=== PATIENT | female | born 1940 | race Caucasian/White ===

== ENCOUNTER 2016-10-09 08:50 | Inpatient (IN) | payer OTHER ==
[2016-09-25 10:22] VITALS: BMI 31.0
--- NOTE | 2016-09-25 11:03 | PAT Medication Instructions ---
Service Date Sep 25, 2016. Current Home Medication List Allopurinol (Zyloprim), 300 MG PO QAM Alprazolam (Xanax), 0.5 MG PO BID Cholecalciferol (Vitamin D3), 1 CAP PO QAM Colchicine (Colchicine *), 0.6 MG PO DAILY PRN for GOUT Cyanocobalamin (Vitamin B-12), 1,000 MCG PO QAM Folic Acid (Folvite), 1 MG PO QAM Indomethacin (Indocin), 50 MG PO TID PRN for Pain Multivitamin (Multivitamin), 1 TAB PO QAM Omeprazole (Prilosec), 20 MG PO QAM Probiotic Product (Acidophilus), 1 CAP PO QAM Ropinirole (Requip), 0.5 MG PO HS Sertraline (Zoloft), 50 MG PO BID Tramadol (Ultram), 50 MG PO Q8H PRN for Pain Medication Instructions For Your Scheduled Surgery - Check with surgeon for instructions: Indomethacin (Indocin), 50 MG PO TID PRN for Pain - Hold the following medications 24 hours prior to surgery: Colchicine (Colchicine *), 0.6 MG PO DAILY PRN for GOUT - Hold the following medications the morning of surgery: Cholecalciferol (Vitamin D3), 1 CAP PO QAM Cyanocobalamin (Vitamin B-12), 1,000 MCG PO QAM Folic Acid (Folvite), 1 MG PO QAM Multivitamin (Multivitamin), 1 TAB PO QAM Probiotic Product (Acidophilus), 1 CAP PO QAM - Take the following medications the morning of surgery with a sip of water: Allopurinol (Zyloprim), 300 MG PO QAM Alprazolam (Xanax), 0.5 MG PO BID Omeprazole (Prilosec), 20 MG PO QAM Sertraline (Zoloft), 50 MG PO BID Tramadol (Ultram), 50 MG PO Q8H PRN for Pain(okay to take up to 4 hours prior to surgery if needed) - Hold the following medications as scheduled the night before surgery: Ropinirole (Requip), 0.5 MG PO HS - Take the following medications as scheduled the night before surgery: Alprazolam (Xanax), 0.5 MG PO BID Sertraline (Zoloft), 50 MG PO BID Tramadol (Ultram), 50 MG PO Q8H PRN for Pain (if needed) If you have any questions please call us at [phone] or [phone] or [phone]
[2016-09-25 11:46] LABS: BASO % 0.2 %; BASO ABS # 0.01 K/uL (0-0.2); COMPLETE YES; HEMATOCRIT 39.3 % (37-47); IG% 0.4 %; MEAN CELL VOLUME 96.6 fL (80-100); MEAN CORPUSCULAR HEMOGLOBIN 31.4 pg (25-34); MEAN CORPUSCULAR HGB CONC 32.6 g/dl (32-36); MEAN PLATELET VOLUME 10.9 fL (7.4-10.4); MONO % 12.4 %; PLATELET COUNT 279 K/uL (130-400); RED BLOOD COUNT 4.07 M/uL (4.2-5.4); WHITE BLOOD COUNT 5.26 K/uL (4.8-10.8)
--- NOTE | 2016-09-25 11:46 | DIAGNOSTIC IMAGING REPORT ---
TWO VIEW CHEST CLINICAL HISTORY: Preoperative examination. FINDINGS: PA and lateral chest radiographs are compared to study dated 09/08/2010. The cardiomediastinal silhouette is unremarkable. Chronic interstitial thickening is similar to previous. The lungs and pleural spaces are clear. There is no pneumothorax. The skeletal structures are osteopenic. Fusion hardware is partially visualized in the lumbar spine. IMPRESSION: No active disease in the chest. Electronically signed by: [place] Andres M.D. 09/25/2016 11:44 AM Dictated Date/Time: 09/25/2016 11:44 AM
[2016-09-25 12:21] LABS: BUN/CREATININE RATIO 18.7 (10-20); CALCIUM 9.3 mg/dl (8.5-10.1); POTASSIUM 4.5 mmol/L (3.5-5.1)
[2016-09-25 12:26] LABS: URINE APPEARANCE CLEAR (CLEAR); URINE BILIRUBIN NEG (NEG); URINE COLOR YELLOW; URINE NITRITE NEG (NEG); URINE PH 5.5 (4.5-7.5); URINE SPECIFIC GRAVITY 1.015 (1.000-1.030); UROBILINOGEN NEG (NEG)
[2016-09-25 12:27] LABS: MANUAL MICROSCOPIC REQUIRED? NO; REVIEW REQ? NO
[2016-10-09] VITALS (7 sets, daily range): BP systolic 128–178; BP diastolic 80–121; PULSE 72–93; TEMP 35.5–36.4; O2SAT 94–100; Ht 147.3 cm; Wt 67.3 kg
[~2016-10-09] VITALS: Ht 147.3 cm; Wt 67.3 kg
[~2016-10-09 08:50] MED LIST: ALLO300T2 PO; ALPR-411 PO; CEFAZOLIN 2000 MG/60 ML D5W 60 ML IV SCH; CHOL2000 PO; CLC6 PO; CYAN10005 PO; FENTANYL CITRATE INJ 50 MCG/1 ML 2 ML VIAL ONE; FOLI1TAB7 PO; INDO-24 PO; LACTATED RINGER'S 1000ML IV SCH; MIDAZOLAM HCL 1 MG/ML 2ML VIAL ONE; MULT-506 PO; PRLSR20 PO; PROB1CAP54 PO; ROPI0.5T15 PO; SERT50TA PO; TRAM-10 PO
[2016-10-09] MEDS ORDERED: ONDANSETRON INJ 2 MG/ML 2 ML VIAL ONE (09:04)
[2016-10-09] MEDS ORDERED: DEXAMETHASONE SOD INJ 4 MG/ML VIAL ONE (09:04)
[2016-10-09] MEDS ORDERED: ROCURONIUM BROMIDE 10 MG/ML 5 ML VIAL IV ONE ×2 (09:04→12:36)
[2016-10-09] MEDS ORDERED: GLYCOPYRROLATE INJ 0.2 MG/ML VIAL ONE (09:04)
[2016-10-09] MEDS ORDERED: PROPOFOL IV EMULSION 10 MG/ML 20 ML VIAL IV ONE (09:04)
[2016-10-09] MEDS ORDERED: EpHEDrine SULFATE 50MG/5ML SYR ONE (09:04)
[2016-10-09] MEDS ORDERED: LIDOCAINE HCL 2% 2 ML VIAL (20MG/ML) ONE (09:04)
[2016-10-09] MEDS ORDERED: NEOSTIGMINE METHYLSULFATE 5 MG/5 ML SYR ONE (09:04)
[2016-10-09] MEDS ORDERED: LARYING-O-JET KIT (LTA) ONE ×2 (09:04)
[2016-10-09] MEDS ORDERED: PHENYLEPHRINE 100MCG/ML 5ML SYR ONE (09:04)
--- NOTE | 2016-10-09 10:29 | History & Physical Bridge Note ---
H&P Re-Evaluation Bridge Note: I have examined the patient, reviewed the History & Physical and in the interval since the performance of the History & Physical I have noted the following changes of clinical significance: No changes noted
[2016-10-09] MEDS ORDERED: BUPIVACAINE 0.5 % 5 MG/1 ML MPF 30ML VIAL ONE (10:36)
[2016-10-09] MEDS ORDERED: HYDROmorphone INJ 1 MG/ML SYR IV PRN (11:45)
[2016-10-09] MEDS ORDERED: EpHEDrine SULFATE INJ 50 MG/ML AMP IV PRN (11:45)
[2016-10-09] MEDS ORDERED: ONDANSETRON INJ 2 MG/ML 2 ML VIAL IV PRN ×2 (11:45→13:45)
[2016-10-09] MEDS ORDERED: ATROPINE SULFATE 0.1 MG/ML 5ML SYR IV PRN (11:45)
[2016-10-09] MEDS ORDERED: LABETALOL HCL IV 5 MG/ML 20ML IV ONE (11:59)
[2016-10-09] MEDS ORDERED: FENTANYL CITRATE INJ 50 MCG/1 ML 2 ML VIAL ONE (12:01)
[2016-10-09] MEDS ORDERED: TISSEEL FIBRIN SEALANT 10ML TOP ONE (13:29)
[2016-10-09] MEDS ORDERED: INDOMETHACIN 25 MG CAP PO PRN (13:45)
[2016-10-09] MEDS ORDERED: COLCHICINE 0.6 MG TAB PO PRN (13:45)
[2016-10-09 14:23] LABS: MEAN CORPUSCULAR HEMOGLOBIN 31.3 pg (25-34); MEAN PLATELET VOLUME 10.4 fL (7.4-10.4); PLATELET COUNT 254 K/uL (130-400); RED BLOOD COUNT 3.96 M/uL (4.2-5.4); WHITE BLOOD COUNT 9.84 K/uL (4.8-10.8)
[2016-10-09] MEDS: FENTANYL CITRATE INJ 50 MCG/1 ML 2 ML VIAL IV PRN ×4 (14:25→14:40)
[2016-10-09 14:33] LABS: MEAN CORPUSCULAR HGB CONC 32.6 g/dl (32-36)
--- NOTE | 2016-10-09 14:46 | Anesthesiology Progress Note ---
Anesthesia Post Op Note Date & Time Oct 09, 2016 at 14:46 Vital Signs Pain Intensity: 4 Vital Signs Past 12 Hours Date Time Temp Pulse Resp B/P (MAP) Pulse Ox O2 Delivery O2 Flow Rate FiO2 10/09/16 14:35 75 12 180/85 100 Nasal Cannula 2 10/09/16 14:25 74 12 180/94 100 Oxymask 3 10/09/16 14:15 72 12 183/95 100 Oxymask 3 10/09/16 14:05 69 12 179/90 100 Oxymask 10 10/09/16 13:57 36.3 72 12 135/71 100 Oxymask 10 10/09/16 09:38 36.4 72 20 167/82 98 Room Air Notes Mental Status: alert / awake / arousable, participated in evaluation Pt Amnestic to Procedure: Yes Nausea / Vomiting: adequately controlled Pain: adequately controlled Airway Patency, RR, SpO2: stable & adequate BP & HR: stable & adequate Hydration State: stable & adequate Anesthetic Complications: no major complications apparent
[2016-10-09 14:47] LABS: BUN/CREATININE RATIO 10.6 (10-20); CALCIUM 9.1 mg/dl (8.5-10.1); CREATININE 1.1 mg/dl (0.60-1.20)
--- NOTE | 2016-10-09 15:35 | [facility] Operative Report ---
Operative Report Operative Date Oct 09, 2016. Pre-Operative Diagnosis Renal Mass Post-Operative Diagnosis Renal Cell Carcinoma Procedure(s) Performed Left Laparoscopic Hand-Assisted Nephrectomy with Biopsy Surgeon Dr. Clay Colby Packaging Clerk Surgeon(s) Lily Lacey PA-C Estimated Blood Loss 100cc Findings Left renal mass Frozen section: Clear-cell renal cell carcinoma Specimens As per Surgeon Frozen 1. Renal mass Biopsy Pernament A. Left Kidney Drains Crawford Anesthesia Gen. 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 While this mass was very concerning for renal cell carcinoma we were somewhat uncertain if this could possibly represent a new metastatic focus of her breast cancer Description of Procedure Jenniffer May is identified in the preoperative holding area, appropriate informed consents were reviewed and completed, and the patient was transported to the operating suite. Appropriate preoperative antibiotics in the form of Ancef. Adequate general anesthesia was achieved, and she was placed in a right side down left side up lateral decubitus position where she was padded brace in standard fashion. Following appropriate sterile prep and drape a Parker style incision was made in the left lower quadrant. Incision extended from the lateral borders of the rectus muscle through the external oblique fascia for approximately 8 cm. Of note is her dissected there is subcutaneous fat we encountered numerous small vessels which are suture-ligated. After exposing the external oblique fascia I was able to incise this sharply and ultimately open it further with electrocautery. I then performed the same procedure to the internal oblique followed by the transversalis. The peritoneum was opened sharply adjacent to the border of the rectus. Sweep was performed which revealed no evidence of adhesions. I then opened the peritoneum laterally for the full length of our incision. Utilizing this incision I was able to mobilize the white line of Toldt and medialize the colon. I then placed a hand port and insufflated the abdomen inspection of the abdomen via a 12 mm trocar inserted through the hand port revealed an anterior abdominal wall free of adhesions. After visualizing this was able to place 2 additional 12 mm ports along the border of the rectus muscle. The first was placed 2 finger rest below the costal margin the second 8 cm inferior to that. Then proceeded with the remaining laparoscopic portion of the case. I continued by mobilization of the colon medially. Simultaneously I dissected between the top of the kidney and the spleen mobilizing the spleen cephalad. After exposing the medial aspect of the kidney I turned my attention to the lower pole. I was able to control the lower chondral is and identified both the gonadal vein and the ureter. Initial dissection was medial to the gonadal and lateral to the aorta were elevated at the structures laterally. I moved well I carefully up towards the kidney and the vascular hilum. Of note there were numerous branches off the gonadal vein in this area, and I controlled several days with clips. I ultimately clipped the gonadal vein as well inferiorly and superiorly to avoid any continued bleeding. I change my dissection plane at that time to lateral to the gonadal vein and elevated the kidney lateral to it. I was able to dissect anterior to the vein as I traced this up to its junction with the renal vein. I expose the entire anterior surface of the renal vein and dissected above the cephalad and below the caudal portions of it. Renal artery was palpable immediately posterior to the vein. I was able to pass a finger posterior to the hilar structures completely wrapped my finger around both the structures in preparation for a staple placement. 4 stapling the hilum, however we turned our attention to incising Gerota's fascia and exposing underlying mass. I made my initial incision on the lateral portion of the kidney in the mid pole region based on the CT findings. After exposing the renal surface, I was able to identify 1 approximately quarter sized area consistent with the tumor. I performed a laparoscopic ultrasound of this area confirming that this was in fact the minimally exophytic portion of the very endophytic tumor. I then passed a Mike-Cut biopsy needle through the skin took 3 cores from the tumor. These cores were sent for immediate frozen section analysis. A reason for the frozen section analysis, is that if she in fact has metastatic breast cancer, we would likely abort that radical nephrectomy and move more towards a systemic therapy. I accompanied the tumor down to the pathology department, and microscopic evaluation revealed what appears to be clear cell renal cell carcinoma. After the pathology was returned, we will I returned to the room in stable the hilar structures with a single staple load. He was excellent hemostasis. I was able to dissect between the upper pole of the kidney and the lateral aspect of the adrenal gland utilizing the Harmonic scalpel. The upper pole of the kidney was entirely free to that time only remaining attachments were lateral which were controlled with Harmonic scalpel and the inferior. The inferior pole Gerota's fascia was controlled with a single staple load which included the ureter. Specimen was then removed through the hand port, and the renal fossa inspected. There was excellent hemostasis. I did place some Tisseel over the lateral border of the adrenal gland and the hilar structures. I gently coaxed the descending colon back in the left aspect of the abdomen and guided omentum over the entire surgical field. I closed the 2-12 mm laparoscopic portion [id number] 0 Vicryl sutures, and closed the hand port and numerous layers. The first reapproximated the peritoneum followed by the internal oblique fascia and ultimately the external oblique fascia. 0 Vicryl was used for all of these. Her approximate Laura's fascia utilizing an additional 0 Vicryl before closing the skin with 4-0 Monocryl. All wounds were infiltrated with half percent Marcaine, and all wounds were dressed with Dermabond. Patient was subsequent extubated and taken to the PACU in stable condition. I attest to the content of the Intraoperative Record and any orders documented therein. Any exceptions are noted below.
[2016-10-09] MEDS: LACTATED RINGER'S 1000ML 1,000 ML IV SCH ×2 (15:41→23:17)
[2016-10-09] MEDS: HYDROmorphone INJ 1 MG/ML SYR IV PRN (15:41)
[2016-10-09 16:49] LABS: PROTHROMBIN TIME (PATIENT) 10.2 SECONDS (9.0-12.0)
[2016-10-09] MEDS: ACETAMINOPHEN 500 MG TAB PO SCH ×2 (17:37→23:17)
[2016-10-09] MEDS: ACETAMINOPHEN/CODEINE 300/30MG TAB PO PRN ×2 (17:37→22:34)
[2016-10-09] MEDS: CEFAZOLIN IV 2,000 MG in DEXTROSE 5% 50ML 50 ML IV SCH (20:33)
[2016-10-09] MEDS: DOCUSATE SODIUM 100 MG CAP PO SCH (20:33)
[2016-10-09] MEDS: ALPRAZOLAM 0.5 MG TAB PO SCH (20:33)
[2016-10-09] MEDS: SERTRALINE HCL 50 MG TAB PO SCH (20:33)
[2016-10-09] MEDS: HEPARIN SOD 5000 UNIT/0.5 ML CARP SQ SCH (22:28)
[2016-10-10] MEDS: HYDROmorphone INJ 1 MG/ML SYR IV PRN (02:29)
[2016-10-10] MEDS: CEFAZOLIN IV 2,000 MG in DEXTROSE 5% 50ML 50 ML IV SCH ×2 (03:22→13:42)
[2016-10-10 03:36] VITALS: BP 91/55; PULSE 85; TEMP 36.6; O2SAT 91
[2016-10-10 03:55] VITALS: BP 101/62
[2016-10-10] MEDS: ACETAMINOPHEN 500 MG TAB PO SCH ×4 (06:08→23:44)
[2016-10-10] MEDS: LACTATED RINGER'S 1000ML 1,000 ML IV SCH (07:20)
[2016-10-10 08:02] VITALS: BP 133/84; PULSE 85; TEMP 36.4; O2SAT 96
--- NOTE | 2016-10-10 08:11 | Progress Note ---
Subjective Date of Service: Oct 10, 2016. Subjective Pt evaluation today including: conversation w/ patient, chart review, lab review Voiding: cervantes catheter in place (patent, draining clear, yellow urine) 76 yo female s/p left HALN. Renal bx intraop consistent with clear cell. Pt reports some left back pain this morning. Labs pending. I&Os acceptable. Review of Systems Constitutional: No fever, No chills Respiratory: No shortness of breath Cardiac: No chest pain Abdomen: + pain (incisional), No nausea, No vomiting Female : No hematuria Heme: No abnormal bleeding/bruising Objective Vital Signs Date Time Temp Pulse Resp B/P (MAP) Pulse Ox O2 Delivery O2 Flow Rate FiO2 10/10/16 08:02 36.4 85 18 133/84 (100) 96 Room Air 10/10/16 03:55 101/62 (75) 10/10/16 03:36 36.6 85 16 91/55 (67) 91 Room Air 10/09/16 23:55 36.4 93 16 144/82 (102) 96 Room Air 10/09/16 23:22 Room Air 10/09/16 17:10 84 14 128/80 (96) 94 Nasal Cannula 2.0 10/09/16 16:31 98 Nasal Cannula 2.0 10/09/16 16:10 77 16 153/121 (132) 98 Nasal Cannula 2.0 10/09/16 15:40 36.4 79 13 176/96 (122) 100 Nasal Cannula 2.0 10/09/16 15:10 35.5 79 14 178/84 (115) 100 Nasal Cannula 2.0 10/09/16 15:10 100 Nasal Cannula 2.0 10/09/16 15:10 100 Nasal Cannula 2.0 10/09/16 14:55 72 16 144/90 98 Nasal Cannula 2 10/09/16 14:45 36.4 70 12 148/94 98 Nasal Cannula 2 10/09/16 14:35 75 12 180/85 100 Nasal Cannula 2 10/09/16 14:25 74 12 180/94 100 Oxymask 3 10/09/16 14:15 72 12 183/95 100 Oxymask 3 10/09/16 14:05 69 12 179/90 100 Oxymask 10 10/09/16 13:57 36.3 72 12 135/71 100 Oxymask 10 10/09/16 09:38 36.4 72 20 167/82 98 Room Air Physical Exam General Appearance: no apparent distress, + obese Eyes: normal inspection ENT: hearing grossly normal Neck: no JVD Respiratory/Chest: no respiratory distress, no accessory muscle use Cardiovascular: no JVD Abdomen: + pertinent finding (abdominal incisions c/d/i) Extremities: normal inspection Neurologic/Psychiatric: alert, normal mood/affect, oriented x 3 Skin: normal color Laboratory Results Last 24 Hours Test 10/09/16 14:04 10/09/16 16:01 10/10/16 04:44 White Blood Count 9.84 K/uL Red Blood Count 3.96 M/uL Hemoglobin 12.4 g/dL Hematocrit 38.0 % Mean Corpuscular Volume 96.0 fL Mean Corpuscular Hemoglobin 31.3 pg Mean Corpuscular Hemoglobin Concent 32.6 g/dl RDW Standard Deviation 53.7 fL RDW Coefficient of Variation 15.2 % Platelet Count 254 K/uL Mean Platelet Volume 10.4 fL Sodium Level 140 mmol/L Potassium Level 4.0 mmol/L Chloride Level 106 mmol/L Carbon Dioxide Level 27 mmol/L Anion Gap 7.0 mmol/L Blood Urea Nitrogen 12 mg/dl Creatinine 1.10 mg/dl Est Creatinine Clear Calc Drug Dose 36.4 ml/min Estimated GFR () 57.3 Estimated GFR (Non- 49.4 BUN/Creatinine Ratio 10.6 Random Glucose 144 mg/dl Calcium Level 9.1 mg/dl Prothrombin Time 10.2 SECONDS Prothromb Time International Ratio 1.0 Assessment and Plan POD #1 s/p left HALN. AFVSS. Pt doing well post-op. Labs pending. Will d/c cervantes catheter this morning; TOV. Will advance to a mechanical soft diet for breakfast. Encourage use of IS. Ambulation to hallway after breakfast. Possible d/c home later this afternoon if labs stable, tolerating PO, pain controlled, and ambulating without difficulty. The pt was seen and assessed with Dr. Colby this morning. Discharge planning: home
[2016-10-10] MEDS ORDERED: ACET-749 PO (08:14)
[2016-10-10] MEDS ORDERED: CLC100 PO (08:14)
--- NOTE | 2016-10-10 08:17 | Discharge Instructions ---
Discharge Instructions Date of Service Oct 10, 2016. Admission Reason for Admission: Renal Mass Discharge Discharge Diagnosis / Problem: Renal cell carcinoma Discharge Goals Goal(s): Decrease discomfort, Increase independence, Improve disease control, Improve nutritional status, Therapeutic intervention Activity Recommendations Activity Limitations: as noted below Shower/Bathe: tomorrow 1. Do not lift >15lbs x 6 weeks. 2. No heavy exercise x 6 weeks. You may engage in light activity such as walking and stairs as tolerated. 3. Do not drive x [address] while taking narcotics. 4. Follow-up as scheduled. Please call our office at [phone] if you need to reschedule for any reason. 5. Do not take tramadol in addition to Tylenol #3. Please take one or the other. . . Current Hospital Diet Hospital Diet(s): Regular Diet Discharge Diet Recommended Diet: Regular Diet Procedures Procedures Performed: Left Laparoscopic Hand-Assisted Nephrectomy with Biopsy Pending Studies Studies pending at discharge: yes (renal pathology) List of pending studies: renal mass pathology Medical Emergencies . Who to Call and When: Medical Emergencies: If at any time you feel your situation is an emergency, please call 911 immediately. . Non-Emergent Contact Non-Emergency issues call your: Urologist Call Non-Emergent contact if: temperature is above 101.5, your pain is not controlled, your pain is worsening, your pain is unusual for you, your pain is concerning you, you have any medication questions . . "Provider Documentation" section prepared by Lily Lacey. . VTE Core Measure Inpt VTE Proph given/why not?: Unfractionated heparin SQ, SCD's [place] Drug Monitoring Program Search Results: patient reviewed within database, see additional documentation (pt with chronic prescriptions for tramadol and alprazolam)
[2016-10-10] MEDS: DOCUSATE SODIUM 100 MG CAP PO SCH ×2 (08:23→21:37)
[2016-10-10] MEDS: MULTIVITAMIN TAB PO SCH (08:23)
[2016-10-10] MEDS: CHOLECALCIFEROL 1000 INTER.UNIT TAB PO SCH (08:24)
[2016-10-10] MEDS: CYANOCOBALAMIN 500 MCG TAB (VIT B-12) PO SCH (08:28)
[2016-10-10] MEDS: ALLOPURINOL 300 MG TAB PO SCH (08:28)
[2016-10-10] MEDS: SERTRALINE HCL 50 MG TAB PO SCH ×2 (08:29→21:37)
[2016-10-10] MEDS: ALPRAZOLAM 0.5 MG TAB PO SCH ×2 (08:35→21:37)
[2016-10-10] MEDS: PANTOprazole SOD 40 MG TAB PO SCH (08:35)
--- NOTE | 2016-10-10 08:52 | Anesthesiology Progress Note ---
Anesthesia Post Op Note Date & Time Oct 10, 2016 at 08:52 Vital Signs Vital Signs Past 12 Hours Date Time Temp Pulse Resp B/P (MAP) Pulse Ox O2 Delivery O2 Flow Rate FiO2 10/10/16 08:02 36.4 85 18 133/84 (100) 96 Room Air 10/10/16 03:55 101/62 (75) 10/10/16 03:36 36.6 85 16 91/55 (67) 91 Room Air 10/09/16 23:55 36.4 93 16 144/82 (102) 96 Room Air 10/09/16 23:22 Room Air Notes Mental Status: alert / awake / arousable, participated in evaluation Pt Amnestic to Procedure: Yes Nausea / Vomiting: adequately controlled Pain: adequately controlled Airway Patency, RR, SpO2: stable & adequate BP & HR: stable & adequate Hydration State: stable & adequate Anesthetic Complications: no major complications apparent
[2016-10-10 09:00] LABS: BASO % 0.1 %; BASO ABS # 0.01 K/uL (0-0.2); COMPLETE YES; EOS % 0.4 %; HEMATOCRIT 35.5 % (37-47); IG% 0.3 %; LYMPH % 12.1 %; LYMPH ABS # 0.89 K/uL (1.2-3.4); MEAN CELL VOLUME 96.7 fL (80-100); MEAN CORPUSCULAR HEMOGLOBIN 31.9 pg (25-34); MEAN PLATELET VOLUME 10.5 fL (7.4-10.4); MONO % 11.7 %; NEUT % 75.4 %; PLATELET COUNT 258 K/uL (130-400); RED BLOOD COUNT 3.67 M/uL (4.2-5.4); WHITE BLOOD COUNT 7.38 K/uL (4.8-10.8)
[2016-10-10 09:22] LABS: BUN/CREATININE RATIO 10.1 (10-20); CALCIUM 9.1 mg/dl (8.5-10.1); CREATININE 1.5 mg/dl (0.60-1.20); POTASSIUM 4.6 mmol/L (3.5-5.1)
[2016-10-10] MEDS: HEPARIN SOD 5000 UNIT/0.5 ML CARP SQ SCH ×2 (13:42→21:42)
[2016-10-10] MEDS ORDERED: BISACODYL 10 MG SUPP PR PRN (15:30)
[2016-10-10] MEDS ORDERED: NURSING VERBAL MED ORDER ONE (15:30)
[2016-10-10] MEDS ORDERED: LACTATED RINGER'S 1000ML 1,000 ML IV SCH (15:41)
[2016-10-10 17:19] VITALS: BP 193/99; PULSE 89; TEMP 36.7; O2SAT 96
[2016-10-10] MEDS: ACETAMINOPHEN/CODEINE 300/30MG TAB PO PRN ×2 (18:53→23:44)
[2016-10-10 20:00] VITALS: BP 172/85
[2016-10-10 22:55] VITALS: BP 161/94; PULSE 79; TEMP 36.8; O2SAT 98
[2016-10-10 23:10] LABS: MANUAL MICROSCOPIC REQUIRED? NO; REVIEW REQ? NO; URINE APPEARANCE CLEAR (CLEAR); URINE BILIRUBIN NEG (NEG); URINE COLOR YELLOW; URINE EPITHELIAL CELL AUTO 0-5 /lpf (0-5); URINE NITRITE NEG (NEG); URINE PH 6.5 (4.5-7.5); UROBILINOGEN NEG (NEG); ZZUR CULT IF INDIC CLEAN CATCH NO
[2016-10-11] MEDS: ACETAMINOPHEN 500 MG TAB PO SCH ×4 (06:00→23:55)
[2016-10-11] MEDS: ACETAMINOPHEN/CODEINE 300/30MG TAB PO PRN ×2 (06:23→14:28)
[2016-10-11 06:32] LABS: BASO % 0.1 %; BASO ABS # 0.01 K/uL (0-0.2); COMPLETE YES; EOS % 1.2 %; HEMATOCRIT 33.6 % (37-47); IG% 0.3 %; LYMPH ABS # 0.83 K/uL (1.2-3.4); MEAN CELL VOLUME 93.3 fL (80-100); MEAN CORPUSCULAR HEMOGLOBIN 31.1 pg (25-34); MEAN CORPUSCULAR HGB CONC 33.3 g/dl (32-36); MEAN PLATELET VOLUME 10.4 fL (7.4-10.4); NEUT % 74.4 %; PLATELET COUNT 229 K/uL (130-400); WHITE BLOOD COUNT 7.54 K/uL (4.8-10.8)
[2016-10-11 07:02] LABS: BUN/CREATININE RATIO 10.5 (10-20); CALCIUM 9.2 mg/dl (8.5-10.1); CREATININE 1.9 mg/dl (0.60-1.20); POTASSIUM 4.3 mmol/L (3.5-5.1)
[2016-10-11 07:11] VITALS: BP 157/77; PULSE 85; TEMP 36.6; O2SAT 96
[2016-10-11] MEDS ORDERED: PHENAZOPYRIDINE HCL 100 MG TAB PO PRN (08:00)
[2016-10-11] MEDS: CYANOCOBALAMIN 500 MCG TAB (VIT B-12) PO SCH (08:29)
[2016-10-11] MEDS: PANTOprazole SOD 40 MG TAB PO SCH (08:29)
[2016-10-11] MEDS: MULTIVITAMIN TAB PO SCH (08:29)
[2016-10-11] MEDS: ALPRAZOLAM 0.5 MG TAB PO SCH ×2 (08:29→21:29)
[2016-10-11] MEDS: ALLOPURINOL 300 MG TAB PO SCH (08:29)
[2016-10-11] MEDS: CHOLECALCIFEROL 1000 INTER.UNIT TAB PO SCH (08:29)
[2016-10-11] MEDS: HEPARIN SOD 5000 UNIT/0.5 ML CARP SQ SCH ×2 (08:34→21:31)
--- NOTE | 2016-10-11 08:37 | Progress Note ---
Subjective Date of Service: Oct 11, 2016. Subjective Pt evaluation today including: conversation w/ patient, chart review, lab review 76 yo female s/p left HALN. Pt c/o some abdominal pain this morning. Also c/o dysuria and increased frequency. Emesis reported yesterday afternoon. None since. Tolerating clear liquids. States her appetite is poor currently. Reports BM yesterday. Has been ambulating to the hallways without issue. H&H stable. Cr has increased to 1.9 today. Review of Systems Constitutional: No fever, No chills Respiratory: No shortness of breath Cardiac: No chest pain Abdomen: No pain, No nausea, No vomiting Female : + dysuria, + urinary frequency, No hematuria Heme: No abnormal bleeding/bruising Objective Vital Signs Date Time Temp Pulse Resp B/P (MAP) Pulse Ox O2 Delivery O2 Flow Rate FiO2 10/11/16 07:11 36.6 85 16 157/77 (103) 96 Room Air 10/10/16 23:48 Room Air 10/10/16 22:55 36.8 79 18 161/94 (116) 98 Room Air 10/10/16 20:00 172/85 (114) 10/10/16 17:19 36.7 89 18 193/99 (130) 96 Room Air 10/10/16 16:35 Room Air Physical Exam General Appearance: no apparent distress, + obese Eyes: normal inspection ENT: hearing grossly normal Neck: no JVD Respiratory/Chest: no respiratory distress, no accessory muscle use Cardiovascular: no JVD Abdomen: + pertinent finding (abdominal incisions c/d/i ) Extremities: normal inspection Neurologic/Psychiatric: alert, normal mood/affect, oriented x 3 Skin: normal color Laboratory Results Last 24 Hours Test 10/10/16 08:37 10/10/16 22:40 10/11/16 06:04 White Blood Count 7.38 K/uL 7.54 K/uL Red Blood Count 3.67 M/uL 3.60 M/uL Hemoglobin 11.7 g/dL 11.2 g/dL Hematocrit 35.5 % 33.6 % Mean Corpuscular Volume 96.7 fL 93.3 fL Mean Corpuscular Hemoglobin 31.9 pg 31.1 pg Mean Corpuscular Hemoglobin Concent 33.0 g/dl 33.3 g/dl Platelet Count 258 K/uL 229 K/uL Mean Platelet Volume 10.5 fL 10.4 fL Neutrophils (%) (Auto) 75.4 % 74.4 % Lymphocytes (%) (Auto) 12.1 % 11.0 % Monocytes (%) (Auto) 11.7 % 13.0 % Eosinophils (%) (Auto) 0.4 % 1.2 % Basophils (%) (Auto) 0.1 % 0.1 % Neutrophils # (Auto) 5.57 K/uL 5.61 K/uL Lymphocytes # (Auto) 0.89 K/uL 0.83 K/uL Monocytes # (Auto) 0.86 K/uL 0.98 K/uL Eosinophils # (Auto) 0.03 K/uL 0.09 K/uL Basophils # (Auto) 0.01 K/uL 0.01 K/uL RDW Standard Deviation 52.5 fL 50.9 fL RDW Coefficient of Variation 14.9 % 15.0 % Immature Granulocyte % (Auto) 0.3 % 0.3 % Immature Granulocyte # (Auto) 0.02 K/uL 0.02 K/uL Sodium Level 134 mmol/L 133 mmol/L Potassium Level 4.6 mmol/L 4.3 mmol/L Chloride Level 98 mmol/L 96 mmol/L Carbon Dioxide Level 29 mmol/L 31 mmol/L Anion Gap 7.0 mmol/L 6.0 mmol/L Blood Urea Nitrogen 15 mg/dl 20 mg/dl Creatinine 1.50 mg/dl 1.90 mg/dl Est Creatinine Clear Calc Drug Dose 26.7 ml/min 21.1 ml/min Estimated GFR () 39.4 29.6 Estimated GFR (Non- 34.0 25.5 BUN/Creatinine Ratio 10.1 10.5 Random Glucose 96 mg/dl 102 mg/dl Calcium Level 9.1 mg/dl 9.2 mg/dl Urine Color YELLOW Urine Appearance CLEAR Urine pH 6.5 Urine Specific [place] 1.010 Urine Protein NEG Urine Glucose (UA) NEG Urine Ketones NEG Urine Occult Blood 2+ Urine Nitrite NEG Urine Bilirubin NEG Urine Urobilinogen NEG Urine Leukocyte Esterase NEG Urine WBC (Auto) 1-5 /hpf Urine RBC (Auto) 10-30 /hpf Urine Hyaline Casts (Auto) 0 /lpf Urine Epithelial Cells (Auto) 0-5 /lpf Urine Bacteria (Auto) NEG Assessment and Plan POD #2 s/p left HALN. AFVSS. Will send a UC&S this morning. Start Cipro 250mg BID for possible UTI. Will also start Pyridium for dysuria. Caution with renal function. Will restart LR. Continue clear liquids this morning. May advance to a mechanical soft diet after lunch if appetite improves. Encourage use of IS. Encourage ambulation to hallway. Will order a PT/OT eval this morning. Possible d/c home later this afternoon if pain and appetite improved. Discharge planning: home
[2016-10-11] MEDS: CIPROFLOXACIN 250 MG TAB PO SCH ×2 (08:52→21:29)
[2016-10-11] MEDS: LACTATED RINGER'S 1000ML 1,000 ML IV SCH ×2 (08:52→18:53)
[2016-10-11] MEDS: DOCUSATE SODIUM 100 MG CAP PO SCH ×2 (08:54→21:29)
[2016-10-11] MEDS: SERTRALINE HCL 50 MG TAB PO SCH ×2 (09:53→21:29)
[2016-10-11 15:47] VITALS: BP 169/79; PULSE 83; TEMP 36.8; O2SAT 96
[2016-10-11] MEDS: HYDROmorphone INJ 1 MG/ML SYR IV PRN ×2 (16:27→22:10)
[2016-10-11] MEDS ORDERED: LORAZEPAM INJ 1 MG in SYRINGE 0.5 ML IV ONE (16:30)
[2016-10-11 23:25] VITALS: BP 139/82; PULSE 90; TEMP 36.5; O2SAT 98
[2016-10-12] MEDS: LACTATED RINGER'S 1000ML 1,000 ML IV SCH (03:40)
[2016-10-12] MEDS: ACETAMINOPHEN 500 MG TAB PO SCH (05:41)
[2016-10-12 06:49] VITALS: BP 140/66; PULSE 92; TEMP 36.3; O2SAT 96
[2016-10-12 08:12] LABS: BASO % 0.2 %; BASO ABS # 0.01 K/uL (0-0.2); COMPLETE YES; EOS % 3.2 %; HEMATOCRIT 33.9 % (37-47); IG% 0.4 %; LYMPH % 8.9 %; MEAN CELL VOLUME 95.8 fL (80-100); MEAN CORPUSCULAR HEMOGLOBIN 29.9 pg (25-34); MEAN CORPUSCULAR HGB CONC 31.3 g/dl (32-36); MEAN PLATELET VOLUME 10.5 fL (7.4-10.4); MONO % 14.8 %; NEUT % 72.5 %; PLATELET COUNT 235 K/uL (130-400); RED BLOOD COUNT 3.54 M/uL (4.2-5.4); WHITE BLOOD COUNT 5.62 K/uL (4.8-10.8)
[2016-10-12 08:42] LABS: BUN/CREATININE RATIO 10.1 (10-20); CREATININE 2.2 mg/dl (0.60-1.20); POTASSIUM 4.4 mmol/L (3.5-5.1)
--- NOTE | 2016-10-12 09:47 | Progress Note ---
Subjective Date of Service: Oct 12, 2016. (Tori Albert CRNP) Subjective Pt evaluation today including: conversation w/ patient, chart review, lab review Voiding: cervantes catheter in place s/p POD #3 MARVEL Had to have cervantes placed last evening due to inability to void. Was difficult catheter to place but she is tolerating well- patent and draining. Urine culture pendings. AFVSS. white count, Hgb, Hct and stable. Her creatinine has increased over the past 24 hours. Tolerating diet. OOB ambulating. Minimal pain. (Tori Albert CRNP) Review of Systems Constitutional: No fever, No chills Eyes: No worsening of vision ENT: No hearing loss Respiratory: No cough, No shortness of breath Cardiac: No chest pain Abdomen: No pain, No nausea Female : + see HPI Neurologic: No memory loss Psychiatric: No depression symptoms Heme: No abnormal bleeding/bruising Endo: No fatigue (Tori Albert CRNP) Objective Vital Signs Date Time Temp Pulse Resp B/P (MAP) Pulse Ox O2 Delivery O2 Flow Rate FiO2 10/12/16 07:45 Room Air 10/12/16 06:49 36.3 92 17 140/66 (90) 96 Room Air 10/11/16 23:57 Room Air 10/11/16 23:25 36.5 90 16 139/82 (101) 98 Room Air 10/11/16 15:47 36.8 83 18 169/79 (109) 96 Room Air 10/11/16 15:20 Room Air (Tori Albert CRNP) Physical Exam General Appearance: WD/WN, no apparent distress Eyes: normal inspection Respiratory/Chest: no respiratory distress, no accessory muscle use Abdomen: soft Extremities: normal range of motion, non-tender, normal inspection, no pedal edema, no calf tenderness Neurologic/Psychiatric: alert, normal mood/affect, oriented x 3 Skin: normal color, warm/dry (Tori Albert CRNP) Laboratory Results Last 24 Hours Test 10/12/16 07:41 White Blood Count 5.62 K/uL Red Blood Count 3.54 M/uL Hemoglobin 10.6 g/dL Hematocrit 33.9 % Mean Corpuscular Volume 95.8 fL Mean Corpuscular Hemoglobin 29.9 pg Mean Corpuscular Hemoglobin Concent 31.3 g/dl Platelet Count 235 K/uL Mean Platelet Volume 10.5 fL Neutrophils (%) (Auto) 72.5 % Lymphocytes (%) (Auto) 8.9 % Monocytes (%) (Auto) 14.8 % Eosinophils (%) (Auto) 3.2 % Basophils (%) (Auto) 0.2 % Neutrophils # (Auto) 4.08 K/uL Lymphocytes # (Auto) 0.50 K/uL Monocytes # (Auto) 0.83 K/uL Eosinophils # (Auto) 0.18 K/uL Basophils # (Auto) 0.01 K/uL RDW Standard Deviation 52.5 fL RDW Coefficient of Variation 14.9 % Immature Granulocyte % (Auto) 0.4 % Immature Granulocyte # (Auto) 0.02 K/uL Sodium Level 138 mmol/L Potassium Level 4.4 mmol/L Chloride Level 102 mmol/L Carbon Dioxide Level 30 mmol/L Anion Gap 6.0 mmol/L Blood Urea Nitrogen 22 mg/dl Creatinine 2.20 mg/dl Est Creatinine Clear Calc Drug Dose 18.2 ml/min Estimated GFR () 24.8 Estimated GFR (Non- 21.4 BUN/Creatinine Ratio 10.1 Random Glucose 91 mg/dl Calcium Level 9.0 mg/dl (Tori Albert CRNP) Assessment and Plan s/p HALN POD#3 Developed urine retention- will need d/c home with cervantes catheter. Will follow up in office for TOV. Our office will call to set up. Her serum creatinine has elevated. Dr. Colby is aware. No need to recheck at this point. Tolerating her pain and oral meds and diet. Plan for d/c home today. Rx on chart and discharge instructions completed. 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
[2016-10-12] MEDS: SERTRALINE HCL 50 MG TAB PO SCH (10:05)
[2016-10-12] MEDS: ALPRAZOLAM 0.5 MG TAB PO SCH (10:05)
[2016-10-12] MEDS: PANTOprazole SOD 40 MG TAB PO SCH (10:05)
[2016-10-12] MEDS: DOCUSATE SODIUM 100 MG CAP PO SCH (10:05)
[2016-10-12] MEDS: CYANOCOBALAMIN 500 MCG TAB (VIT B-12) PO SCH (10:06)
[2016-10-12] MEDS: ALLOPURINOL 300 MG TAB PO SCH (10:06)
[2016-10-12] MEDS: CHOLECALCIFEROL 1000 INTER.UNIT TAB PO SCH (10:06)
[2016-10-12] MEDS: MULTIVITAMIN TAB PO SCH (10:07)
[2016-10-12] MEDS: HEPARIN SOD 5000 UNIT/0.5 ML CARP SQ SCH (10:14)
[2016-10-12 13:17] VITALS: BP 140/66; PULSE 92; TEMP 36.3; O2SAT 96
--- NOTE | 2016-10-16 08:40 | Discharge Summary ---
Discharge Summary Date of Service Oct 16, 2016. Discharge Summary Admission Date: Oct 09, 2016 at 09:46 Discharge Date: Oct 12, 2016 Discharge Disposition: Home Principal Diagnosis: Renal cell carcinoma Procedures: Left hand-assisted laparoscopic radical nephrectomy Medication Reconciliation New Medications: Acetaminophen/Codeine (Tylenol W/Codeine #3) 300 Mg/30 Mg Tab 1-2 TAB PO Q4H PRN for Pain, #20 TAB 0 Refills Do not take with tramadol. Docusate Sodium (Docusate Sodium) 100 Mg Cap 100 MG PO BID PRN for Constipation, #60 CAP 0 Refills Continued Medications: Allopurinol (Zyloprim) 300 Mg Tab 300 MG PO QAM, TAB Alprazolam (Xanax) 0.5 Mg Tab 0.5 MG PO BID, 0 Refills Cholecalciferol (Vitamin D3) 2,000 Unit Cap 1 CAP PO QAM for 90 Days, #90 CAP 3 Refills Colchicine (Colchicine *) 0.6 Mg Tab 0.6 MG PO DAILY PRN for GOUT, 0 Refills Cyanocobalamin (Vitamin B-12) 1,000 Mcg Tab 1000 MCG PO QAM, 0 Refills Folic Acid (Folvite) 1 Mg Tab 1 MG PO QAM, TAB Indomethacin (Indocin) 50 Mg Cap 50 MG PO TID PRN for Pain, #20 CAP WITH FOOD UNTIL PAIN RESOLVES Multivitamin (Multivitamin) Tab 1 TAB PO QAM, TAB Omeprazole (Prilosec) 20 Mg Capcr 20 MG PO QAM, 0 Refills Probiotic Product (Acidophilus) 1 Cap Cap 1 CAP PO QAM Sertraline (Zoloft) 50 Mg Tab 50 MG PO BID, 0 Refills Tramadol (Ultram) 50 Mg Tab 50 MG PO Q8H PRN for Pain, TAB Hospital Course Patient was admitted on 10/09/2016 for a planned left hand-assisted laparoscopic radical nephrectomy. Details of this procedure are as dictated previously an operative report, however in summary she tolerated the procedure extremely well. She progressed appropriately on the floor on postoperative day 1, however she did experience urinary retention after removal catheter. She has retracted urethra that may catheter placement moderately difficult, however catheter was replaced and left in place through the remainder of her stay. By the morning of postoperative day 3 she was stable, tolerating a diet, ambulatory , and prepared for discharge home. We reviewed her pathology prior to discharge, she was subsequently discharged in stable condition. Total time spent on discharge = This includes examination of the patient, discharge planning, medication reconciliation, and communication with other providers. Discharge Instructions Please see the previously written discharge instructions
== END 2016-10-12 14:05 | disposition home or self-care (01) | DRG 658 ==
LOC: C.ACU 08:50 → C.MSN 09:46 → ENRESERV 14:27
PROVIDERS: ADMIT Urology; ATTEND Urology
PROC: 0TT10ZZ Resection of Left Kidney, Open Approach (ICD-10-PCS; principal; 2016-10-09 10:30)
DX: C64.2 Malignant neoplasm of left kidney, except renal pelvis (principal); R33.9 Retention of urine, unspecified; I12.9 Hypertensive chronic kidney disease with stage 1 through stage 4 chronic kidney disease, or unspecified chronic kidney disease; N18.3 Chronic kidney disease, stage 3 (moderate); K21.9 Gastro-esophageal reflux disease without esophagitis; G62.9 Polyneuropathy, unspecified; M10.9 Gout, unspecified; G25.81 Restless legs syndrome; F41.9 Anxiety disorder, unspecified; Z85.3 Personal history of malignant neoplasm of breast; Z98.1 Arthrodesis status; Z79.891 Long term (current) use of opiate analgesic; Z79.899 Other long term (current) drug therapy

== ENCOUNTER → 2017-06-05 | Outpatient (CLI) | payer OTHER ==
[~2017-06-05] MED LIST changes: +ACET-749 PO; -CEFAZOLIN 2000 MG/60 ML D5W 60 ML IV SCH; +CLC100 PO; -FENTANYL CITRATE INJ 50 MCG/1 ML 2 ML VIAL ONE; -FOLI1TAB7 PO; +FOLI1TAB8 PO; -LACTATED RINGER'S 1000ML IV SCH; -MIDAZOLAM HCL 1 MG/ML 2ML VIAL ONE; -ROPI0.5T15 PO
[2017-06-05 17:22] LABS: HEMATOCRIT 40.6 % (37-47); HEMOGLOBIN 13.3 g/dL (12.0-16.0); MEAN CELL VOLUME 95.1 fL (80-100); MEAN CORPUSCULAR HEMOGLOBIN 31.1 pg (25-34); MEAN CORPUSCULAR HGB CONC 32.8 g/dl (32-36); MEAN PLATELET VOLUME 10.6 fL (7.4-10.4); PLATELET COUNT 260 K/uL (130-400); RED CELL DISTRIBUTION WIDTH SD 47.8 fL (36.4-46.3); WHITE BLOOD COUNT 5.42 K/uL (4.8-10.8)
== END | disposition home or self-care (01) ==
LOC: C.LABPBG 14:04
PROVIDERS: ATTEND Urology
DX: C64.9 Malignant neoplasm of unspecified kidney, except renal pelvis (principal)